=== PATIENT | female | born 1940 | race Caucasian/White ===

== ENCOUNTER → 2017-05-09 | Outpatient (CLI) | payer MEDICARE, BC ==
[~2017-05-09] MED LIST: ASPI-146 PO; ATOR10TA15 PO; COMMODE 3-IN-11 MIS; ENOX40IN SQ; FOSA70TA PO; MULTTAB67 PO; NORC5TAB PO; TYLE325T PO; WALKER WHEELS/F1 MIS
== END ==
LOC: CPRE 08:26
PROVIDERS: ATTEND Orthopaedic Surgery
DX: Z00.00 Encounter for general adult medical examination without abnormal findings (principal)

== ENCOUNTER 2017-05-11 05:06 | Inpatient (IN) | payer MEDICARE, BC ==
[~2017-05-11] VITALS: Ht 152.4 cm; Wt 60.8 kg
[~2017-05-11 05:06] MED LIST changes: -ASPI-146 PO; -COMMODE 3-IN-11 MIS; -ENOX40IN SQ; -FOSA70TA PO; -NORC5TAB PO; -TYLE325T PO; -WALKER WHEELS/F1 MIS
[2017-05-11] MEDS ORDERED: ceFAZolin 2 GM PREMIX 50 ML IV SCH (05:30)
[2017-05-11] MEDS ORDERED: POVIDONE IODINE 5% (ANTISEPSIS KIT) 4 APPLICATIONS EACH NARE PRN (05:30)
[2017-05-11] MEDS ORDERED: VANCOMYCIN 1000 MG/NS 250 ML (for <70 kg) IV SCH ×2 (05:30)
[2017-05-11] MEDS ORDERED: DEXAMETHASONE SOD PHOS 20 MG/5 ML VIAL IV SCH (05:30)
[2017-05-11] MEDS ORDERED: METOPROLOL TARTRATE 25 MG TAB PO PRN (05:30)
[2017-05-11] MEDS ORDERED: CHLORHEXIDINE GLUCONATE 2 % 1 PACK (2 CLOTHS) TOPICAL PRN (05:30)
[2017-05-11] MEDS ORDERED: POVIDONE IODINE 7.5% SCRUB 118 ML BOTTLE TOPICAL SCH (05:30)
[2017-05-11] MEDS ORDERED: LACTATED RINGER'S 1000 ML IV PRN (05:30)
[2017-05-11] MEDS ORDERED: SODIUM CHLORID 0.9% 500 ML IV PRN (05:30)
[2017-05-11] MEDS ORDERED: INSULIN HUMAN REGULAR 1,000 UNITS/10 ML VIAL SQ PRN (05:30)
[2017-05-11] MEDS ORDERED: TYLE325T PO (05:41)
[2017-05-11] MEDS ORDERED: FOSA70TA PO (05:41)
[2017-05-11] MEDS ORDERED: TRANEXAMIC ACID IV SCH ×2 (06:00→10:00)
[2017-05-11] MEDS ORDERED: SODIUM CHLORIDE 0.9% IV SCH ×2 (06:00→10:00)
[2017-05-11] MEDS ORDERED: EXPAREL PERI-ARTICULAR INJECTION (TOTAL VOL. 60 ML) P-ARTICULR SCH ×2 (06:00)
[2017-05-11] MEDS ORDERED: GENTAMICIN SULFATE 80 MG/2 ML VIAL ONE (06:22)
[2017-05-11] MEDS ORDERED: ACETAMINOPHEN 1000 MG/100 ML 100 ML IV ONE (06:43)
--- NOTE | 2017-05-11 06:48 | HHI.DCPOC ---
Discharge Care Plan Diagnosis: (1) Osteoarthritis of left hip (2) Status post total hip replacement, left Your Health Problems Are: Difficulty with ADL Goals to Promote Your Health * To prevent worsening of your condition and complications * To maintain your health at the optimal level Directions to Meet Your Goals Take your medications as prescribed Follow your dietary instruction Follow activity as directed Keep your appointments as scheduled Take your immunizations and boosters as scheduled If your symptoms worsen call your PCP, if no PCP go to Urgent Care Center or Emergency Room Smoking is Dangerous to Your Health. Avoid second hand smoke Call the 24-hour hour crisis hotline for domestic abuse at Wally Ramachandran May 11, 2017 06:48
--- NOTE | 2017-05-11 06:49 | HHI.FF ---
Face to Face Verification Diagnosis: (1) Osteoarthritis of left hip (2) Status post total hip replacement, left Physical Therapy Gait training, Transfer training, bed to chair Hip: Total hip Left LE Weight Bearing: WB as tolerated Left LE Range of Motion: Active ROM Nursing Nursing: Conrado teaching Additional Instructions Do not change dressing. 1st dressing change will be in the office. I have seen patient Carmen Marrero on 05/11/17. My clinical findings support the need for the requested home health care services because: Limited ability to care for self High risk of falls I certify that my clinical findings support that this patient is homebound because: Post-op weakness Unsteady gait/balance Wally Ramachandran May 11, 2017 06:49
[2017-05-11] MEDS ORDERED: WALKER WHEELS/F1 MIS (06:51)
[2017-05-11] MEDS ORDERED: COMMODE 3-IN-11 MIS (06:51)
--- NOTE | 2017-05-11 08:40 | PD.OP ---
cc: Brad Sena MD Operative Report Date of Surgery: May 11, 2017 Preoperative Diagnosis: Left hip severe osteoarthritis Postoperative Diagnosis: Same Procedure: Left total hip arthroplasty Anesthesia: Spinal Surgeon: Brad Sena Sleeve Maker(s): KAITLIN Thompson The surgical procedure was assisted by my Advanced Registered Nurse Practitioner. My DRIER ATTENDANT presence was necessary throughout this case for the manipulation and positioning of the surgical extremity. My DRIER ATTENDANT was assisting me throughout the duration of this procedure. The skill set of an Advance Registered Nurse Practitioner was medically necessary to complete this procedure. During the surgical case, the surgical technologist was working at the back table and the Advance Registered Nurse Practitioner was directly assisting me. Operation and Findings: IMPLANT DESCRIPTION: 1. [place] Gription Cup, acetabular size 48. 2. [place] AltrX polyethylene, neutral. 4. [place] femoral stem size 8, no collar, standard offset. 5. Femoral head/neck metal, 32, +5. ESTIMATED BLOOD LOSS: 150 cc. JUSTIFICATION FOR PROCEDURE: The patient has end-stage osteoarthritis to the hip. There is an attached conservative measures pathway form in the chart that describes the nonoperative measures that were undertaken prior to consideration of surgical management. The patient understood the risks and benefits of surgical management. See my office notes for further details. PROCEDURE: The patient was brought back to the operative theatre. Adequate anesthesia was obtained. The patient received intravenous Ancef and vancomycin. The patient was carefully placed on the operative table. The lower extremity was prepped and draped in the usual sterile fashion. Fluoroscopic images were obtained. We made a standard anterior incision over the hip. We dissected through the TFL fascia, exposing the anterior capsule. Arthrotomy was performed in a T-shaped fashion. The capsule was tagged with a #2 FiberWire. End-stage arthritis was identified. Osteotomy was performed through the femoral neck exposing the acetabulum. Remnants of the labrum were resected and osteophytes were removed. We sequentially reamed the acetabulum. We trialed the hip and placed the final cup into position. This was done under fluoroscopic guidance to obtain the appropriate inclination and anteversion. A manhole cover was placed into the acetabular component. We then placed the final polyethylene into position and confirmed that it was well seated. Capsular attachments on the calcar and the inner aspect of the greater trochanter were resected. On the proximal aspect of the femur we used a rongeur , box osteotome, canal finder, sequential broaches and lateralizing rasp. We calcar planed the proximal femur. Then thoroughly irrigated the wound. We trialed the hip with the appropriate size stem. We placed the final stem in to position and trialed again. The hip was stable while it was externally rotated 70 degrees when the leg was lowered to the floor. The final head was applied, and final fluoroscopic images were obtained. The wound was thoroughly irrigated again. Interarticular injection of liposomal bupivacaine was given. The capsule was closed with #2 FiberWire and #1 Vicryl. The deep fascia was closed with a #2 Stratafix, followed by 2-0 Vicryl in the skin and jani. Postop plan is to weight-bear as tolerated. DVT prophylaxis will be performed with Joshua, TOSHA aguirre, early mobilization, and Lovenox followed by aspirin. Brad Sena MD May 11, 2017 08:40
[2017-05-11] MEDS ORDERED: NORC5TAB PO (08:43)
[2017-05-11] MEDS ORDERED: ENOX40IN SQ (08:43)
[2017-05-11] MEDS ORDERED: ASPI-146 PO (08:43)
[2017-05-11] MEDS ORDERED: MORPHINE SULFATE 4 MG/ML INJ IV PUSH PRN (08:45)
[2017-05-11] MEDS ORDERED: NALOXONE HCL 0.4 MG/ML AMP IV PUSH PRN (08:45)
[2017-05-11] MEDS ORDERED: ALUMINUM/MAGNESIUM/SIMETH 30 ML CUP PO PRN (08:45)
[2017-05-11] MEDS ORDERED: ACETAMINOPHEN/HYDROcodone 325 MG/5 MG TAB PO PRN (08:45)
[2017-05-11] MEDS ORDERED: diphenhydrAMINE HCL 50 MG/ML VIAL IV PUSH PRN (08:45)
[2017-05-11] MEDS ORDERED: SODIUM CHLORIDE 0.9% FLUSH 5 ML FLUSH IVF PRN (08:45)
[2017-05-11] MEDS ORDERED: BISACODYL 10 MG SUPP RECTAL PRN (08:45)
[2017-05-11] MEDS ORDERED: Post-op Orders (for Pharmacy) MISC XX ONE (08:45)
[2017-05-11] MEDS ORDERED: ONDANSETRON HCL 4 MG/2 ML VIAL IVP PRN (08:45)
[2017-05-11] MEDS ORDERED: DO NOT ADM ANY ANTICOAGULANT DRUGS PRN (09:04)
--- NOTE | 2017-05-11 09:13 | RADRPT ---
EXAM DATE/TIME: 05/11/2017 07:23 [facility] COMPARISON: No previous studies available for comparison. INDICATIONS : Left hip pain, total hip replacement done in operating room. MEDICAL HISTORY : None. SURGICAL HISTORY : None. ENCOUNTER: Initial ACUITY: 1 day PAIN SCORE: Non-responsive. LOCATION: Left hip. FINDINGS: 2 images of the hip were performed in the operating room using C-arm status post noncemented total hi p arthroplasty. CONCLUSION: Intraoperative images. Jhony Murphy MD on May 11, 2017 at 9:11 Board Certified Radiologist. This report was verified electronically.
[2017-05-11] MEDS: SODIUM CHLOR 0.9% 1000 ML INJ 1,000 ML IV SCH ×2 (09:15→18:35)
[2017-05-11] MEDS ORDERED: *morphine SULFATE 8 MG/ML PERIprocedure ONLY ONE (10:12)
--- NOTE | 2017-05-11 10:12 | RADRPT ---
EXAM DATE/TIME: 05/11/2017 09:16 [facility] COMPARISON: HIP LEFT (AP&LAT 2/3VWS) WO AP PELVIS, May 11, 2017, 7:23. INDICATIONS : Post op left total hip. MEDICAL HISTORY : None. SURGICAL HISTORY : None. ENCOUNTER: Initial ACUITY: 1 day PAIN SCORE: 2/10 LOCATION: Left Hip FINDINGS: Multiple views of the pelvis and left hip reveal a total hip prosthesis on the left. This is in good position. Subcutaneous air is seen overlying the left hip. There is a linear lucency involving the il eum. This courses cephalad from the superior portion the acetabulum towards the pelvic gram. No evalu ation or distraction. Moderate osteoarthritis is seen involving the right hip joint. Overlying bowel gas pattern is unremarkable. CONCLUSION: 1. Left hip prosthesis in good position. 2. There is a linear lucency extending cephalad from the superior acetabulum towards the pelvic brim on a single projection. I am unsure if this relates to a true fracture or this relates to undulation in the cortical bone. CT could help differentiate if clinically warranted. Jhony Ferreira Jr., MD on May 11, 2017 at 10:05 Board Certified Radiologist. This report was verified electronically.
--- NOTE | 2017-05-11 11:22 | PD.CONS ---
HPI Service [facility] Consult Requested By Dr. Sena Reason for Consult Medical management Primary Care Physician No Primary Care Physician Diagnoses: History of Present Illness The patient is a pleasant 76-year-old female with past medical history of hyperlipidemia, severe osteoarthritis who came to same day surgery for left hip surgery. The patient was seen in PACU she appears in not acute distress at this time. Says she doesn't have any pain at this time. She denies having any chest pain shortness of breath, nausea, vomiting, diarrhea or constipation. She reportedly reports occasional constipation and is taking [id number] laxatives. No urinary complaints. Review of Systems Except as stated in HPI: all other systems reviewed are Neg Past Family Social History Allergies: Coded Allergies: No Known Allergies (Unverified , 05/09/17) Past Medical History Hyperlipidemia, severe osteoarthritis left hip Past Surgical History Foot surgery a long time ago Reported Medications Reported Meds & Active Scripts Active Enoxaparin Inj (Enoxaparin Sodium) 40 Mg/0.4 Ml Syr 40 Mg SQ DAILY Start Aspirin after Lovenox is completed. Ecotrin Regular Strength (Aspirin) 325 Mg Tabdr 325 Mg PO DAILY Start Aspirin after Lovenox is completed. [place] (Hydrocodone-Acetaminophen) 5-325 mg Tab 1 Tab PO Q4H PRN Reported Tylenol (Acetaminophen) 325 Mg Tab 650 Mg PO Q6H PRN Fosamax (Alendronate Sodium) 70 Mg Tab 70 Mg PO Q7D Atorvastatin (Atorvastatin Calcium) 10 Mg Tab 20 Mg PO DAILY Family History Father with diabetes Mother hypertension, hyperlipidemia Social History Denies alcohol use, illicit drug use or tobacco use. Physical Exam Vital Signs Vital Signs Date Time Temp Pulse Resp B/P (MAP) Pulse Ox O2 Delivery O2 Flow Rate FiO2 05/11/17 10:15 97.5 61 16 118/70 (86) 100 05/11/17 10:00 62 16 111/63 (79) 100 05/11/17 09:45 62 16 112/67 (82) 100 05/11/17 09:30 62 12 123/67 (85) 100 05/11/17 09:15 62 12 98/60 (73) 100 Nasal Cannula 2 05/11/17 09:05 95.5 66 12 93/55 (68) 100 Nasal Cannula 2 Physical Exam GENERAL: This is a well-nourished, well-developed patient, in no apparent distress. SKIN: No rashes, ecchymoses or lesions. Cool and dry. HEAD: Atraumatic. Normocephalic. No temporal or scalp tenderness. EYES: Pupils equal round and reactive. Extraocular motions intact. No scleral icterus. No injection or drainage. ENT: Nose without bleeding, purulent drainage or septal hematoma. Throat without erythema, tonsillar hypertrophy or exudate. Uvula midline. Airway patent. NECK: Trachea midline. No JVD or lymphadenopathy. Supple, nontender, no meningeal signs. CARDIOVASCULAR: Regular rate and rhythm without murmurs, gallops, or rubs. RESPIRATORY: Clear to auscultation. Breath sounds equal bilaterally. No wheezes , rales, or rhonchi. GASTROINTESTINAL: Abdomen soft, non-tender, nondistended. No hepato-splenomegaly , or palpable masses. No guarding. MUSCULOSKELETAL: Status post left hip surgery, dressing CDI. Extremities without clubbing, cyanosis, or edema. No joint tenderness, effusion, or edema noted. No calf tenderness. Negative Homans sign bilaterally. NEUROLOGICAL: Awake and alert. Cranial nerves II through XII intact. Motor and sensory grossly within normal limits. Five out of 5 muscle strength in all muscle groups. Normal speech. Imaging Last Impressions Hip and Pelvis X-Ray 05/11/17 0835 Signed Impressions: Service Date/Time: Thursday, May 11, 2017 09:16 - CONCLUSION: 1. Left hip prosthesis in good position. 2. There is a linear lucency extending cephalad from the superior acetabulum towards the pelvic brim on a single projection. I am unsure if this relates to a true fracture or this relates to undulation in the cortical bone. CT could help differentiate if clinically warranted. Jhony Ferreira Jr., MD Hip X-Ray 05/11/17 0000 Signed Impressions: Service Date/Time: Thursday, May 11, 2017 07:23 - CONCLUSION: Intraoperative images. Jhony Murphy MD Assessment and Plan Assessment and Plan Pleasant 76-year-old female with Severe left he osteoarthritis status post left cheek surgery by Dr. Sena on Pain management per surgeon Continue med management per surgeon Hyperlipidemia continue atorvastatin Occasional constipation might worsen after surgery, bowel regimen as need. Antiemetics as needed. DVT prophylaxis SCD/teds, chemotherapy prophylaxis per surgeon Thank you for this consultation Discussed Condition With Patient, nurse Jeimy Da Silva MD May 11, 2017 11:22
[2017-05-11 12:00] VITALS: BP 126/79; PULSE 94; RESP 16; TEMP 98.1; O2SAT 97
[2017-05-11 12:15] VITALS: BP 96/57; PULSE 67; RESP 17; TEMP 96.3; O2SAT 98
--- NOTE | 2017-05-11 12:18 | RADRPT ---
EXAM DATE/TIME: 05/11/2017 11:30 [facility] COMPARISON: HIP LEFT (AP&LAT 2/3VWS) W AP PELVIS, May 11, 2017, 9:16. INDICATIONS : Post operative, left hip fracture RADIATION DOSE: 22.96 CTDIvol (mGy) MEDICAL HISTORY : Osteoporosis. SURGICAL HISTORY : None. ENCOUNTER: Initial ACUITY: 1 day PAIN SCALE: 5/10 LOCATION: Left hip TECHNIQUE: Volumetric scanning of the hip was performed. Using automated exposure control and adjustment of the mA and/or kV according to patient size, radiation dose was kept as low as reasonably achievable to o btain optimal diagnostic quality images. DICOM format image data is available electronically for rev iew and comparison. FINDINGS: BONES: CT confirms the presence of a linear, nondisplaced fracture through the left acetabular roof. JOINTS: No evidence of joint narrowing or effusion. SOFT TISSUES: Muscles, tendons and neurovascular structures are grossly unremarkable. No evidence of mass, organize d fluid collection, or foreign body. CONCLUSION: Linear nondisplaced fracture through the left acetabular roof. Ubaldo Pedroza MD on May 11, 2017 at 12:08 Board Certified Radiologist. This report was verified electronically.
[2017-05-11] MEDS: ACETAMINOPHEN/HYDROcodone 325 MG/5 MG TAB PO PRN (14:35)
[2017-05-11 16:00] VITALS: BP 97/60; PULSE 67; RESP 17; TEMP 96.3; O2SAT 97
[2017-05-11 16:14] VITALS: O2SAT 97
[2017-05-11 20:01] VITALS: BP 95/65; PULSE 63; RESP 16; TEMP 95.7; O2SAT 99
[2017-05-11] MEDS ORDERED: ZOLPIDEM TARTRATE 5 MG TAB PO PRN (21:00)
[2017-05-11] MEDS: SODIUM CHLORIDE 0.9% FLUSH 5 ML FLUSH IVF SCH (21:00)
[2017-05-12] VITALS: BP 115/69; PULSE 73; RESP 18; TEMP 97.8; O2SAT 95
[2017-05-12] MEDS: ACETAMINOPHEN/HYDROcodone 325 MG/5 MG TAB PO PRN ×4 (00:04→18:42)
[2017-05-12] MEDS: SODIUM CHLOR 0.9% 1000 ML INJ 1,000 ML IV SCH ×2 (00:05→21:54)
[2017-05-12 04:00] VITALS: BP 103/58; PULSE 69; RESP 18; TEMP 97.8; O2SAT 97
[2017-05-12] MEDS ORDERED: DEXAMETHASONE SOD PHOS 20 MG/5 ML VIAL IV ONE (07:45)
[2017-05-12 08:00] VITALS: BP 99/67; PULSE 70; RESP 16; TEMP 96.8; O2SAT 100
[2017-05-12 08:15] VITALS: O2SAT 95
[2017-05-12 08:21] LABS: MEAN CELL VOLUME 89.8 FL (80.0-100.0); MEAN CORPUSCULAR HEMOGLOBIN 30.3 PG (27.0-34.0); MEAN CORPUSCULAR HGB CONC 33.8 % (32.0-36.0); PLATELET COUNT 145 TH/MM3 (150-450); RED BLOOD COUNT 3.67 MIL/MM3 (4.00-5.30); RED CELL DISTRIBUTION WIDTH 14.5 % (11.6-17.2); REVIEW FLAG FINAL; WHITE BLOOD COUNT 8.3 TH/MM3 (4.0-11.0)
[2017-05-12] MEDS: SODIUM CHLORIDE 0.9% FLUSH 5 ML FLUSH IVF SCH ×2 (08:58→19:36)
[2017-05-12] MEDS: ENOXAPARIN SODIUM 40 MG/0.4 ML SYRINGE SQ SCH (08:58)
[2017-05-12] MEDS: ATORVASTATIN 20 MG TAB PO SCH (08:58)
[2017-05-12] MEDS: MAGNESIUM HYDROXIDE SUSP 30 ML CUP PO PRN (11:21)
--- NOTE | 2017-05-12 11:50 | HHI.PR ---
Subjective Remarks In bed, says pain is controlled doing fairly well with PT. Reports constipation. No n/v/d/c. No fever or chills. Eating well Objective Vitals Vital Signs Date Time Temp Pulse Resp B/P (MAP) Pulse Ox O2 Delivery O2 Flow Rate FiO2 05/12/17 09:16 16 05/12/17 08:15 95 21 05/12/17 08:00 96.8 70 16 99/67 (78) 100 05/12/17 04:00 97.8 69 18 103/58 (73) 97 05/12/17 00:00 97.8 73 18 115/69 (84) 95 05/11/17 20:01 95.7 63 16 95/65 (75) 99 05/11/17 16:14 97 Nasal Cannula 3.00 05/11/17 16:00 96.3 67 17 97/60 (72) 97 05/11/17 12:15 96.3 67 17 96/57 (70) 98 I/O 05/11/17 05/11/17 05/11/17 05/12/17 05/12/17 05/12/17 07:00 15:00 23:00 07:00 15:00 23:00 Intake Total 1720 ml 400 ml 100 ml Output Total 150 ml Balance 1570 ml 400 ml 100 ml Intake Oral 720 ml IV Total 400 ml 100 ml Other 1000 ml Output Estimated Blood Loss 150 ml # Voids 1 3 # Bowel Movements 0 Result Diagram: 05/12/17 0713 Imaging Last Impressions Hip and Pelvis X-Ray 05/11/17 0835 Signed Impressions: Service Date/Time: Thursday, May 11, 2017 09:16 - CONCLUSION: 1. Left hip prosthesis in good position. 2. There is a linear lucency extending cephalad from the superior acetabulum towards the pelvic brim on a single projection. I am unsure if this relates to a true fracture or this relates to undulation in the cortical bone. CT could help differentiate if clinically warranted. Jhony Ferreira Jr., MD Lower Extremity CT 05/11/17 0000 Signed Impressions: Service Date/Time: Thursday, May 11, 2017 11:30 - CONCLUSION: Linear nondisplaced fracture through the left acetabular roof. Ubaldo Pedroza MD Hip X-Ray 05/11/17 0000 Signed Impressions: Service Date/Time: Thursday, May 11, 2017 07:23 - CONCLUSION: Intraoperative images. Jhony Murphy MD Objective Remarks GENERAL: This is a well-nourished, well-developed patient, in no apparent distress. CARDIOVASCULAR: Regular rate and rhythm without murmurs, gallops, or rubs. RESPIRATORY: Clear to auscultation. Breath sounds equal bilaterally. No wheezes , rales, or rhonchi. GASTROINTESTINAL: Abdomen soft, non-tender, nondistended. No hepato-splenomegaly , or palpable masses. No guarding. MUSCULOSKELETAL: Status post left hip surgery, dressing CDI. Extremities without clubbing, cyanosis, or edema. No joint tenderness, effusion, or edema noted. No calf tenderness. Negative Homans sign bilaterally. NEUROLOGICAL: Awake and alert. Cranial nerves II through XII intact. Motor and sensory grossly within normal limits. Five out of 5 muscle strength in all muscle groups. Normal speech. A/P Assessment and Plan Pleasant 76-year-old female with Severe left he osteoarthritis status post left cheek surgery by Dr. Sena on Pain management per surgeon Continue med management per surgeon Hyperlipidemia continue atorvastatin Occasional constipation might worsen after surgery, bowel regimen as need. Antiemetics as needed. DVT prophylaxis SCD/teds, chemotherapy prophylaxis per surgeon Thank you for this consultation Discussed Condition With Patient, nurse Jeimy Da Silva MD May 12, 2017 11:50
[2017-05-12 12:00] VITALS: BP 123/75; PULSE 67; RESP 16; TEMP 97.2; O2SAT 98
--- NOTE | 2017-05-12 12:26 | PD.ORT.PN ---
Subjective Post Op Day #: 1 Subjective Remarks Patient resting in bed with c/o moderate left hip and left lower extremity pain. Family at bedside. Objective Vitals Vital Signs Date Time Temp Pulse Resp B/P (MAP) Pulse Ox O2 Delivery O2 Flow Rate FiO2 05/12/17 09:16 16 05/12/17 08:15 95 21 05/12/17 08:00 96.8 70 16 99/67 (78) 100 05/12/17 04:00 97.8 69 18 103/58 (73) 97 05/12/17 00:00 97.8 73 18 115/69 (84) 95 05/11/17 20:01 95.7 63 16 95/65 (75) 99 05/11/17 16:14 97 Nasal Cannula 3.00 05/11/17 16:00 96.3 67 17 97/60 (72) 97 I/O 05/11/17 05/11/17 05/11/17 05/12/17 05/12/17 05/12/17 07:00 15:00 23:00 07:00 15:00 23:00 Intake Total 1720 ml 400 ml 100 ml Output Total 150 ml Balance 1570 ml 400 ml 100 ml Intake Oral 720 ml IV Total 400 ml 100 ml Other 1000 ml Output Estimated Blood Loss 150 ml # Voids 1 3 # Bowel Movements 0 Result Diagram: 05/12/17 0713 Imaging Last 48 hours Impressions Hip and Pelvis X-Ray 05/11/17 0835 Signed Impressions: Service Date/Time: Thursday, May 11, 2017 09:16 - CONCLUSION: 1. Left hip prosthesis in good position. 2. There is a linear lucency extending cephalad from the superior acetabulum towards the pelvic brim on a single projection. I am unsure if this relates to a true fracture or this relates to undulation in the cortical bone. CT could help differentiate if clinically warranted. Jhony Ferreira Jr., MD Lower Extremity CT 05/11/17 0000 Signed Impressions: Service Date/Time: Thursday, May 11, 2017 11:30 - CONCLUSION: Linear nondisplaced fracture through the left acetabular roof. Ubaldo Pedroza MD Hip X-Ray 05/11/17 0000 Signed Impressions: Service Date/Time: Thursday, May 11, 2017 07:23 - CONCLUSION: Intraoperative images. Jhony Murphy MD Procedures Left SAM Objective Remarks The patient's dressing is C/D/I. Mild to moderate soft tissue swelling. EHL/TA /G intact. 2+ pedal pulse. Calf is soft and nontender. + SILT. Assessment & Plan Ortho Post Op Day #: 1 Problem List: Assessment and Plan POD #1: Left SAM Left superior acetabular fracture 1. TTWB LLE 2. Lovenox followed by ASA for DVT prophylaxis 3. Pain medication as prescribed 4. Ice to the left hip PRN 5. Anticipatory discharge to SNF on Tuesday 6. F/U in the office with Dr. Sena or KAITLIN Meza as previously scheduled. Wally Ramachandran May 12, 2017 12:26
[2017-05-12] MEDS: MULTIVITAMINS/MINERALS THERAPEUTIC TAB PO SCH (19:36)
[2017-05-12] MEDS: DOCUSATE SODIUM 100 MG CAP PO SCH (19:36)
[2017-05-12 20:00] VITALS: BP 106/67; PULSE 64; RESP 16; TEMP 97.2; O2SAT 97
[2017-05-13] VITALS: BP 111/69; PULSE 70; RESP 16; TEMP 96.9; O2SAT 96
[2017-05-13] MEDS: ACETAMINOPHEN/HYDROcodone 325 MG/5 MG TAB PO PRN ×3 (04:28→21:34)
[2017-05-13 07:40] LABS: MEAN CELL VOLUME 89.6 FL (80.0-100.0); MEAN CORPUSCULAR HEMOGLOBIN 30.2 PG (27.0-34.0); MEAN CORPUSCULAR HGB CONC 33.6 % (32.0-36.0); PLATELET COUNT 136 TH/MM3 (150-450); RED BLOOD COUNT 3.35 MIL/MM3 (4.00-5.30); RED CELL DISTRIBUTION WIDTH 14.8 % (11.6-17.2); REVIEW FLAG FINAL; WHITE BLOOD COUNT 9.5 TH/MM3 (4.0-11.0)
[2017-05-13 08:00] VITALS: BP 151/94; PULSE 87; RESP 18; TEMP 98.3; O2SAT 97
--- NOTE | 2017-05-13 08:37 | HHI.PR ---
Subjective Remarks With constipation. No n/v/d. Patient denies any chest pain or sob. No fever or chills. Ambulates to the bath . Pain is controlled by meds. Objective Vitals Vital Signs Date Time Temp Pulse Resp B/P (MAP) Pulse Ox O2 Delivery O2 Flow Rate FiO2 05/13/17 00:00 96.9 70 16 111/69 (83) 96 05/12/17 21:30 21 05/12/17 20:00 97.2 64 16 106/67 (80) 97 05/12/17 12:00 97.2 67 16 123/75 (91) 98 05/12/17 09:16 16 I/O 05/12/17 05/12/17 05/12/17 05/13/17 05/13/17 05/13/17 07:00 15:00 23:00 07:00 15:00 23:00 Intake Total 100 ml 600 ml 240 ml Balance 100 ml 600 ml 240 ml Intake Oral 600 ml 240 ml IV Total 100 ml # Voids 3 4 2 # Bowel Movements 0 Result Diagram: 05/13/17 0657 Imaging Last Impressions Hip and Pelvis X-Ray 05/11/17 0835 Signed Impressions: Service Date/Time: Thursday, May 11, 2017 09:16 - CONCLUSION: 1. Left hip prosthesis in good position. 2. There is a linear lucency extending cephalad from the superior acetabulum towards the pelvic brim on a single projection. I am unsure if this relates to a true fracture or this relates to undulation in the cortical bone. CT could help differentiate if clinically warranted. Jhony Ferreira Jr., MD Lower Extremity CT 05/11/17 0000 Signed Impressions: Service Date/Time: Thursday, May 11, 2017 11:30 - CONCLUSION: Linear nondisplaced fracture through the left acetabular roof. Ubaldo Pedroza MD Hip X-Ray 05/11/17 0000 Signed Impressions: Service Date/Time: Thursday, May 11, 2017 07:23 - CONCLUSION: Intraoperative images. Jhony Murphy MD Objective Remarks GENERAL: This is a well-nourished, well-developed patient, in no apparent distress. CARDIOVASCULAR: Regular rate and rhythm without murmurs, gallops, or rubs. RESPIRATORY: Clear to auscultation. Breath sounds equal bilaterally. No wheezes , rales, or rhonchi. GASTROINTESTINAL: Abdomen soft, non-tender, nondistended. No hepato-splenomegaly , or palpable masses. No guarding. MUSCULOSKELETAL: Status post left hip surgery, dressing CDI. Extremities without clubbing, cyanosis, or edema. No joint tenderness, effusion, or edema noted. No calf tenderness. Negative Homans sign bilaterally. NEUROLOGICAL: Awake and alert. Cranial nerves II through XII intact. Motor and sensory grossly within normal limits. Five out of 5 muscle strength in all muscle groups. Normal speech. A/P Assessment and Plan Pleasant 76-year-old female with Severe left he osteoarthritis status post left cheek surgery by Dr. Sena on Pain management per surgeon Continue med management per surgeon Hyperlipidemia continue atorvastatin Constipation might worsen after surgery, bowel regimen as need. Add lactulose. Antiemetics as needed. DVT prophylaxis SCD/teds, chemotherapy prophylaxis per surgeon Thank you for this consultation Discussed Condition With Patient, nurse Stable medically. Jeimy Da Silva MD May 13, 2017 08:37
[2017-05-13] MEDS: MULTIVITAMINS/MINERALS THERAPEUTIC TAB PO SCH ×2 (08:46→21:34)
[2017-05-13] MEDS: DOCUSATE SODIUM 100 MG CAP PO SCH ×2 (08:46→21:34)
[2017-05-13] MEDS: ATORVASTATIN 20 MG TAB PO SCH (08:47)
[2017-05-13] MEDS: SODIUM CHLORIDE 0.9% FLUSH 5 ML FLUSH IVF SCH ×2 (08:47→21:35)
[2017-05-13] MEDS: SODIUM CHLOR 0.9% 1000 ML INJ 1,000 ML IV SCH ×2 (08:47→20:35)
[2017-05-13] MEDS: ENOXAPARIN SODIUM 40 MG/0.4 ML SYRINGE SQ SCH (08:47)
[2017-05-13] MEDS ORDERED: LACTULOSE SYRUP 20 GM/30 ML CUP PO PRN (09:00)
[2017-05-13 12:00] VITALS: BP 104/59; PULSE 70; RESP 18; TEMP 95.8; O2SAT 99
[2017-05-13 16:00] VITALS: BP 107/63; PULSE 59; RESP 18; TEMP 97.3; O2SAT 98
--- NOTE | 2017-05-13 16:34 | PD.ORT.PN ---
Subjective Post Op Day #: 2 Subjective Remarks Patient resting in bed with c/o decreased left hip and left lower extremity pain. Family at bedside. Patient has some confusion secondary to history of dementia. Objective Vitals Vital Signs Date Time Temp Pulse Resp B/P (MAP) Pulse Ox O2 Delivery O2 Flow Rate FiO2 05/13/17 12:00 95.8 70 18 104/59 (74) 99 05/13/17 08:00 98.3 87 18 151/94 (113) 97 05/13/17 00:00 96.9 70 16 111/69 (83) 96 05/12/17 21:30 21 05/12/17 20:00 97.2 64 16 106/67 (80) 97 I/O 05/12/17 05/12/17 05/12/17 05/13/17 05/13/17 05/13/17 07:00 15:00 23:00 07:00 15:00 23:00 Intake Total 100 ml 600 ml 240 ml Balance 100 ml 600 ml 240 ml Intake Oral 600 ml 240 ml IV Total 100 ml # Voids 3 4 2 # Bowel Movements 0 Result Diagram: 05/13/17 0657 Imaging Last 48 hours Impressions Hip and Pelvis X-Ray 05/11/17 0835 Signed Impressions: Service Date/Time: Thursday, May 11, 2017 09:16 - CONCLUSION: 1. Left hip prosthesis in good position. 2. There is a linear lucency extending cephalad from the superior acetabulum towards the pelvic brim on a single projection. I am unsure if this relates to a true fracture or this relates to undulation in the cortical bone. CT could help differentiate if clinically warranted. Jhony Ferreira Jr., MD Lower Extremity CT 05/11/17 0000 Signed Impressions: Service Date/Time: Thursday, May 11, 2017 11:30 - CONCLUSION: Linear nondisplaced fracture through the left acetabular roof. Ubaldo Pedroza MD Hip X-Ray 05/11/17 0000 Signed Impressions: Service Date/Time: Thursday, May 11, 2017 07:23 - CONCLUSION: Intraoperative images. Jhony Murphy MD Procedures Left SAM Objective Remarks The patient's dressing is C/D/I. Mild to moderate soft tissue swelling. EHL/TA /G intact. 2+ pedal pulse. Calf is soft and nontender. + SILT. Assessment & Plan Ortho Post Op Day #: 2 Problem List: Assessment and Plan POD #2: Left SAM Left superior acetabular fracture 1. TTWB LLE 2. Lovenox followed by ASA for DVT prophylaxis 3. Pain medication as prescribed 4. Ice to the left hip PRN 5. Anticipatory discharge to SNF on Tuesday ([facility]) 6. F/U in the office with Dr. Sena or KAITLIN Meza as previously scheduled. Wally Ramachanrdan May 13, 2017 16:34
[2017-05-13 18:20] VITALS: O2SAT 98
[2017-05-13 20:00] VITALS: BP 111/65; PULSE 90; RESP 17; TEMP 98.8; O2SAT 96
[2017-05-13] MEDS: MAGNESIUM HYDROXIDE SUSP 30 ML CUP PO PRN (21:33)
[2017-05-14] VITALS: BP 120/71; PULSE 80; RESP 16; TEMP 98.2; O2SAT 97
[2017-05-14] MEDS: SODIUM CHLOR 0.9% 1000 ML INJ 1,000 ML IV SCH ×2 (03:11→16:35)
[2017-05-14] MEDS: ACETAMINOPHEN/HYDROcodone 325 MG/5 MG TAB PO PRN ×3 (04:27→17:58)
[2017-05-14 06:20] LABS: HEMATOCRIT 30.5 % (35.0-46.0); MEAN CORPUSCULAR HGB CONC 33.7 % (32.0-36.0); PLATELET COUNT 144 TH/MM3 (150-450); RED BLOOD COUNT 3.43 MIL/MM3 (4.00-5.30); RED CELL DISTRIBUTION WIDTH 14.8 % (11.6-17.2); REVIEW FLAG FINAL; WHITE BLOOD COUNT 6.9 TH/MM3 (4.0-11.0)
--- NOTE | 2017-05-14 06:49 | PD.ORT.PN ---
Subjective Subjective Remarks POD 3 s/p Left SAM doing well. pain controlled. out of bed with therapy. Objective Vitals Vital Signs Date Time Temp Pulse Resp B/P (MAP) Pulse Ox O2 Delivery O2 Flow Rate FiO2 05/14/17 05:21 18 05/14/17 00:00 98.2 80 16 120/71 (87) 97 05/13/17 20:00 98.8 90 17 111/65 (80) 96 05/13/17 18:20 98 21 05/13/17 16:00 97.3 59 18 107/63 (78) 98 05/13/17 12:00 95.8 70 18 104/59 (74) 99 05/13/17 08:00 98.3 87 18 151/94 (113) 97 I/O 05/13/17 05/13/17 05/13/17 05/14/17 05/14/17 05/14/17 07:00 15:00 23:00 07:00 15:00 23:00 Intake Total 240 ml 720 ml 600 ml 480 ml Balance 240 ml 720 ml 600 ml 480 ml Intake Oral 240 ml 720 ml 600 ml 480 ml # Voids 2 4 2 2 # Bowel Movements 0 Result Diagram: 05/14/17 0532 Imaging Last 48 hours Impressions Hip and Pelvis X-Ray 05/11/17 0835 Signed Impressions: Service Date/Time: Thursday, May 11, 2017 09:16 - CONCLUSION: 1. Left hip prosthesis in good position. 2. There is a linear lucency extending cephalad from the superior acetabulum towards the pelvic brim on a single projection. I am unsure if this relates to a true fracture or this relates to undulation in the cortical bone. CT could help differentiate if clinically warranted. Jhony Ferreira Jr., MD Lower Extremity CT 05/11/17 0000 Signed Impressions: Service Date/Time: Thursday, May 11, 2017 11:30 - CONCLUSION: Linear nondisplaced fracture through the left acetabular roof. Ubaldo Pedroza MD Hip X-Ray 05/11/17 0000 Signed Impressions: Service Date/Time: Thursday, May 11, 2017 07:23 - CONCLUSION: Intraoperative images. Jhony Muprhy MD Procedures Left SAM Objective Remarks The patient's dressing is C/D/I. Mild to moderate soft tissue swelling. EHL/TA /G intact. 2+ pedal pulse. Calf is soft and nontender. + SILT. Assessment & Plan Assessment and Plan POD #3: Left SAM Left superior acetabular fracture 1. TTWB LLE 2. Lovenox followed by ASA for DVT prophylaxis 3. Pain medication as prescribed 4. Ice to the left hip PRN 5. Anticipatory discharge to SNF on Tuesday ([facility]) -DC to SNF today 6. F/U in the office with Dr. Sena or KAITLIN Meza as previously scheduled. Mac Delgado May 14, 2017 06:49
[2017-05-14 08:00] VITALS: BP 104/58; PULSE 65; RESP 18; TEMP 95.8; O2SAT 98
[2017-05-14] MEDS: SODIUM CHLORIDE 0.9% FLUSH 5 ML FLUSH IVF SCH ×2 (09:00→20:54)
[2017-05-14] MEDS: DOCUSATE SODIUM 100 MG CAP PO SCH ×2 (10:18→20:56)
[2017-05-14] MEDS: MULTIVITAMINS/MINERALS THERAPEUTIC TAB PO SCH ×2 (10:18→20:56)
[2017-05-14] MEDS: ATORVASTATIN 20 MG TAB PO SCH (10:18)
[2017-05-14] MEDS: ENOXAPARIN SODIUM 40 MG/0.4 ML SYRINGE SQ SCH (10:19)
[2017-05-14] MEDS: MAGNESIUM HYDROXIDE SUSP 30 ML CUP PO PRN (10:20)
[2017-05-14 12:00] VITALS: BP 119/65; PULSE 72; RESP 18; TEMP 96.7; O2SAT 99
[2017-05-14 16:00] VITALS: BP 109/66; PULSE 77; RESP 19; TEMP 98.4; O2SAT 97
--- NOTE | 2017-05-14 16:21 | HHI.PR ---
Subjective Remarks Events overnight. Afebrile, vital signs stable. Patient with 2 episodes of dizziness and hypotension while using the restroom. She states she felt very lightheaded and as if she was going to pass out. Nurse immediately took her blood pressure and patient was hypotensive to 80s/40s. The patient states she does not feel comfortable going home at this time would like to stay in the hospital another day. She has not had a repeat episode since her bowel movement. Objective Vitals Vital Signs Date Time Temp Pulse Resp B/P (MAP) Pulse Ox O2 Delivery O2 Flow Rate FiO2 05/14/17 08:00 95.8 65 18 104/58 (73) 98 05/14/17 05:21 18 05/14/17 00:00 98.2 80 16 120/71 (87) 97 05/13/17 20:00 98.8 90 17 111/65 (80) 96 05/13/17 18:20 98 21 I/O 05/13/17 05/13/17 05/13/17 05/14/17 05/14/17 05/14/17 07:00 15:00 23:00 07:00 15:00 23:00 Intake Total 240 ml 720 ml 600 ml 480 ml Balance 240 ml 720 ml 600 ml 480 ml Intake Oral 240 ml 720 ml 600 ml 480 ml # Voids 2 4 2 2 # Bowel Movements 0 Result Diagram: 05/14/17 0532 Objective Remarks GENERAL: This is a well-nourished, well-developed patient, in no apparent distress. CARDIOVASCULAR: Regular rate and rhythm without murmurs, gallops, or rubs. RESPIRATORY: Clear to auscultation. Breath sounds equal bilaterally. No wheezes , rales, or rhonchi. GASTROINTESTINAL: Abdomen soft, non-tender, nondistended. No hepato-splenomegaly , or palpable masses. No guarding. MUSCULOSKELETAL: Status post left hip surgery, dressing CDI. Extremities without clubbing, cyanosis, or edema. No joint tenderness, effusion, or edema noted. No calf tenderness. Negative Homans sign bilaterally. NEUROLOGICAL: Awake and alert. Cranial nerves II through XII intact. Motor and sensory grossly within normal limits. Five out of 5 muscle strength in all muscle groups. Normal speech. A/P Assessment and Plan Pleasant 76-year-old female with Vasovagal near-syncope - Patient's episode is consistent with hypotension secondary to vasovagal response during defecation. Continue to monitor blood pressure. Obtain orthostatics. - Despite reassurance, patient and her family do not feel comfortable with discharge at this time. Plan is for discharge first thing tomorrow morning. 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 Sena on Pain management per surgeon Continue med management per surgeon Hyperlipidemia continue atorvastatin Constipation might worsen after surgery, bowel regimen as need. Add lactulose. Antiemetics as needed. DVT prophylaxis SCD/teds, chemotherapy prophylaxis per surgeon Discharge Planning Discharge tomorrow morning Alia Evans MD May 14, 2017 16:21
[2017-05-14 20:35] VITALS: BP 118/70; PULSE 74; RESP 17; TEMP 98.9; O2SAT 96
[2017-05-14 20:36] VITALS: O2SAT 96
[2017-05-15 00:08] VITALS: BP 110/65; PULSE 75; RESP 17; TEMP 98.8; O2SAT 95
[2017-05-15] MEDS: SODIUM CHLOR 0.9% 1000 ML INJ 1,000 ML IV SCH ×2 (02:27→12:35)
[2017-05-15 04:20] VITALS: BP 120/69; PULSE 76; RESP 17; TEMP 98.7; O2SAT 95
--- NOTE | 2017-05-15 06:36 | PD.ORT.PN ---
Subjective Subjective Remarks POD 4 s/p Left SAM doing well. pain controlled. out of bed with therapy. had issues with BP yesterday when getting out of bed. was held for monitoring Objective Vitals Vital Signs Date Time Temp Pulse Resp B/P (MAP) Pulse Ox O2 Delivery O2 Flow Rate FiO2 05/15/17 04:20 98.7 76 17 120/69 (86) 95 05/15/17 03:06 Room Air 05/15/17 00:08 98.8 75 17 110/65 (80) 95 05/14/17 20:36 96 05/14/17 20:35 98.9 74 17 118/70 (86) 96 05/14/17 18:58 16 05/14/17 16:00 98.4 77 19 109/66 (80) 97 05/14/17 12:00 96.7 72 18 119/65 (83) 99 05/14/17 08:00 95.8 65 18 104/58 (73) 98 I/O 05/14/17 05/14/17 05/14/17 05/15/17 05/15/17 05/15/17 07:00 15:00 23:00 07:00 15:00 23:00 Intake Total 480 ml 240 ml Balance 480 ml 240 ml Intake Oral 480 ml 240 ml # Voids 2 6 2 # Bowel Movements 4 2 Result Diagram: 05/14/17 0532 Imaging Last 48 hours Impressions Hip and Pelvis X-Ray 05/11/17 0835 Signed Impressions: Service Date/Time: Thursday, May 11, 2017 09:16 - CONCLUSION: 1. Left hip prosthesis in good position. 2. There is a linear lucency extending cephalad from the superior acetabulum towards the pelvic brim on a single projection. I am unsure if this relates to a true fracture or this relates to undulation in the cortical bone. CT could help differentiate if clinically warranted. Jhony Ferreira Jr., MD Lower Extremity CT 05/11/17 0000 Signed Impressions: Service Date/Time: Thursday, May 11, 2017 11:30 - CONCLUSION: Linear nondisplaced fracture through the left acetabular roof. Ubaldo Pedroza MD Hip X-Ray 05/11/17 0000 Signed Impressions: Service Date/Time: Thursday, May 11, 2017 07:23 - CONCLUSION: Intraoperative images. Jhony Murphy MD Procedures Left SAM Objective Remarks The patient's dressing is C/D/I. Mild to moderate soft tissue swelling. EHL/TA /G intact. 2+ pedal pulse. Calf is soft and nontender. + SILT. Assessment & Plan Assessment and Plan POD #4: Left SAM Left superior acetabular fracture 1. TTWB LLE 2. Lovenox followed by ASA for DVT prophylaxis 3. Pain medication as prescribed 4. Ice to the left hip PRN 5. Anticipatory discharge to SNF on Tuesday ([facility]) -DC to SNF today 6. F/U in the office with Dr. Sena or KAITLIN Meza as previously scheduled. Mac Delgado May 15, 2017 06:36
[2017-05-15 08:00] VITALS: BP 121/70; PULSE 69; RESP 18; TEMP 97.1; O2SAT 97
[2017-05-15] MEDS: ENOXAPARIN SODIUM 40 MG/0.4 ML SYRINGE SQ SCH (08:22)
[2017-05-15] MEDS: MULTIVITAMINS/MINERALS THERAPEUTIC TAB PO SCH (08:23)
[2017-05-15] MEDS: SODIUM CHLORIDE 0.9% FLUSH 5 ML FLUSH IVF SCH (08:23)
[2017-05-15] MEDS: ATORVASTATIN 20 MG TAB PO SCH (08:23)
[2017-05-15] MEDS: DOCUSATE SODIUM 100 MG CAP PO SCH (08:23)
--- NOTE | 2017-05-15 08:36 | HHI.DS ---
Discharge Summary Admission Date May 11, 2017 at 05:06 Discharge Date: May 15, 2017 Admitting Diagnosis Left superior acetabular fracture (1) Osteoarthritis of left hip ICD Code: M16.12 - Unilateral primary osteoarthritis, left hip (2) Status post total hip replacement, left ICD Code: Z96.642 - Presence of left artificial hip joint Procedures Left SAM Brief History - From Admission The patient is a pleasant 76-year-old female with past medical history of hyperlipidemia, severe osteoarthritis who came to same day surgery for left hip surgery. The patient was seen in PACU she appears in not acute distress at this time. Says she doesn't have any pain at this time. She denies having any chest pain shortness of breath, nausea, vomiting, diarrhea or constipation. She reportedly reports occasional constipation and is taking [id number] laxatives. No urinary complaints. CBC/BMP: 05/14/17 0532 Significant Findings Laboratory Tests Test 05/13/17 06:57 05/14/17 05:32 Red Blood Count 3.35 MIL/MM3 (4.00-5.30) 3.43 MIL/MM3 (4.00-5.30) Hemoglobin 10.1 GM/DL (11.6-15.3) 10.3 GM/DL (11.6-15.3) Hematocrit 30.0 % (35.0-46.0) 30.5 % (35.0-46.0) Platelet Count 136 TH/MM3 (150-450) 144 TH/MM3 (150-450) Imaging Last Impressions Hip and Pelvis X-Ray 05/11/17 0835 Signed Impressions: Service Date/Time: Thursday, May 11, 2017 09:16 - CONCLUSION: 1. Left hip prosthesis in good position. 2. There is a linear lucency extending cephalad from the superior acetabulum towards the pelvic brim on a single projection. I am unsure if this relates to a true fracture or this relates to undulation in the cortical bone. CT could help differentiate if clinically warranted. Jhony Ferreira Jr., MD Lower Extremity CT 05/11/17 0000 Signed Impressions: Service Date/Time: Thursday, May 11, 2017 11:30 - CONCLUSION: Linear nondisplaced fracture through the left acetabular roof. Ubaldo Pedroza MD Hip X-Ray 05/11/17 0000 Signed Impressions: Service Date/Time: Thursday, May 11, 2017 07:23 - CONCLUSION: Intraoperative images. Jhony Murphy MD PE at Discharge GENERAL: This is a well-nourished, well-developed patient, in no apparent distress. CARDIOVASCULAR: Regular rate and rhythm without murmurs, gallops, or rubs. RESPIRATORY: Clear to auscultation. Breath sounds equal bilaterally. No wheezes , rales, or rhonchi. GASTROINTESTINAL: Abdomen soft, non-tender, nondistended. No hepato-splenomegaly , or palpable masses. No guarding. MUSCULOSKELETAL: Status post left hip surgery, dressing CDI. Extremities without clubbing, cyanosis, or edema. No joint tenderness, effusion, or edema noted. No calf tenderness. Negative Homans sign bilaterally. NEUROLOGICAL: Awake and alert. Cranial nerves II through XII intact. Motor and sensory grossly within normal limits. Five out of 5 muscle strength in all muscle groups. Normal speech. Hospital Course Vasovagal near-syncope - Resolved - Patient's episode is consistent with hypotension secondary to vasovagal response during defecation. Continued monitoring of blood pressure overnight within normal limits. 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 Sena on - Patient discharged with by mouth pain medication Hyperlipidemia continue atorvastatin Lovenox per orthopedic Pt Condition on Discharge: Stable Discharge Disposition: Discharge to SNF Discharge Time: > 30 minutes Discharge Instructions DIET: Follow Instructions for: As Tolerated, No Restrictions Activities you can perform: Weight Bearing as Cas, Toe Touch Weight Bearing Follow up Referrals: Orthopedics with Brad Sena MD New Medications: Aspirin DR (Ecotrin Regular Strength) 325 Mg Tabdr 325 MG PO DAILY for Prevent Blood Clot, #30 TAB 0 Refills Start Aspirin after Lovenox is completed. Commode 3-in-1 (Commode 3-in-1) 1 Mis Mis EA .ROUTE DIRECTED, #1 0 Refills Enoxaparin Inj (Enoxaparin Inj) 40 Mg/0.4 Ml Syr 40 MG SQ DAILY for Blood Clot Prevention, #10 SYRINGE 0 Refills Start Aspirin after Lovenox is completed. Hydrocodone-Acetaminophen ([place]) 5-325 mg Tab 1 TAB PO Q4H PRN for PAIN, #60 TAB 0 Refills Walker with Front Wheels (Walker with Front Wheels) 1 Mis Mis EA .ROUTE DIRECTED, #1 0 Refills Continued Medications: Alendronate (Fosamax) 70 Mg Tab 70 MG PO Q7D for Osteoporosis Treatment, #4 TAB 0 Refills Atorvastatin (Atorvastatin) 10 Mg Tab 20 MG PO DAILY for Cholesterol Management, #30 TAB 0 Refills Discontinued Medications: Acetaminophen (Tylenol) 325 Mg Tab 650 MG PO Q6H PRN for PAIN SCALE 1 TO 10, TAB 0 Refills Alia Evans MD May 15, 2017 08:36
[2017-05-15 12:00] VITALS: BP 119/72; PULSE 70; RESP 18; TEMP 97.5; O2SAT 97
--- NOTE | 2017-05-15 14:55 | HHI.DS ---
Discharge Summary Admission Date May 11, 2017 at 05:06 Discharge Date: May 15, 2017 Admitting Diagnosis Left hip OA Status post total hip replacement, left Diagnosis: (1) Osteoarthritis of left hip Diagnosis: Principal ICD Codes: M16.12 - Unilateral primary osteoarthritis, left hip (2) Status post total hip replacement, left Diagnosis: Principal ICD Codes: Z96.642 - Presence of left artificial hip joint Procedures Left SAM Brief History This is a 76 year old female patient with severe OA of the left hip CBC/BMP: 05/14/17 0532 Significant Findings Laboratory Tests Test 05/13/17 06:57 05/14/17 05:32 Red Blood Count 3.35 MIL/MM3 (4.00-5.30) 3.43 MIL/MM3 (4.00-5.30) Hemoglobin 10.1 GM/DL (11.6-15.3) 10.3 GM/DL (11.6-15.3) Hematocrit 30.0 % (35.0-46.0) 30.5 % (35.0-46.0) Platelet Count 136 TH/MM3 (150-450) 144 TH/MM3 (150-450) PE at Discharge The patient's dressing is C/D/I. Mild to moderate soft tissue swelling. EHL/TA /G intact. 2+ pedal pulse. Calf is soft and nontender. + SILT. Hospital Course The patient was admitted for severe OA of the left hip to have a left SAM. The patient's surgery went well but she did end up with a small nondisplaced acetabular fracture during surgery. The patient had her WB status limited post op secondary to the acetabular fracture and is TTWB. The patient is on a regular diet. The patient was placed on Lovenox followed by ASA following surgery for DVT prophylaxis. The patient was discharged to a SNF and will f/u in the office with Dr. Sena or KAITLIN Meza as previously scheduled. Pt Condition on Discharge: Stable Discharge Disposition: Discharge to SNF Discharge Instructions Diet Instructions: As Tolerated, No Restrictions Activities You Can Perform: Weight Bearing as Cas, Toe Touch Weight Bearing Activities to Avoid: Strenuous Activity Follow up Referrals: Orthopedics with Brad Sena MD SNF/[facility]/ with [facility] New Medications: Aspirin (Ecotrin Regular Strength) 325 Mg Tabdr 325 MG PO DAILY for Prevent Blood Clot, #30 TAB 0 Refills Start Aspirin after Lovenox is completed. Commode 3-in-1 (Commode 3-in-1) 1 Mis Mis EA .ROUTE DIRECTED, #1 0 Refills Enoxaparin Inj (Enoxaparin Inj) 40 Mg/0.4 Ml Syr 40 MG SQ DAILY for Blood Clot Prevention, #10 SYRINGE 0 Refills Start Aspirin after Lovenox is completed. Hydrocodone-Acetaminophen ([place]) 5-325 mg Tab 1 TAB PO Q4H PRN for PAIN, #60 TAB 0 Refills Walker with Front Wheels (Walker with Front Wheels) 1 Mis Mis EA .ROUTE DIRECTED, #1 0 Refills Continued Medications: Alendronate (Fosamax) 70 Mg Tab 70 MG PO Q7D for Osteoporosis Treatment, #4 TAB 0 Refills Atorvastatin (Atorvastatin) 10 Mg Tab 20 MG PO DAILY for Cholesterol Management, #30 TAB 0 Refills Discontinued Medications: Acetaminophen (Tylenol) 325 Mg Tab 650 MG PO Q6H PRN for PAIN SCALE 1 TO 10, TAB 0 Refills Wally Ramachandran May 15, 2017 14:55
[2017-05-15] MEDS: ACETAMINOPHEN/HYDROcodone 325 MG/5 MG TAB PO PRN (15:06)
== END 2017-05-15 17:20 | DRG 470 ==
LOC: HSDI 05:06 → EDUNIT# 07:00 → N06B 11:47 → N06A 17:35
PROVIDERS: ADMIT Orthopaedic Surgery; ATTEND Orthopaedic Surgery
PROC: 0SRB04A Replacement of Left Hip Joint with Ceramic on Polyethylene Synthetic Substitute, Uncemented, Open Approach (ICD-10-PCS; principal; 2017-05-11 07:00)
DX: M16.12 Unilateral primary osteoarthritis, left hip (principal); S32.409A Unspecified fracture of unspecified acetabulum, initial encounter for closed fracture; F03.90 Unspecified dementia, unspecified severity, without behavioral disturbance, psychotic disturbance, mood disturbance, and anxiety; E78.5 Hyperlipidemia, unspecified; K59.00 Constipation, unspecified; Y83.8 Other surgical procedures as the cause of abnormal reaction of the patient, or of later complication, without mention of misadventure at the time of the procedure
CPT/HCPCS: 73502; 73700; 76000; 85027; 86850; 86900; 86901; 94150; C9290; J0131; J0690; J1100; J1580; J1650; J2270; J3370; J7030; J7050; J7120